=== PATIENT | female | born 1985 | race Caucasian/White ===

== ENCOUNTER 2018-11-12 08:37 | Inpatient (IN) | payer OTHER ==
[~2018-11-12] VITALS: Ht 177.8 cm; Wt 88.0 kg
[2018-11-12] MEDS ORDERED: PRENATAL FORMU1 EAC1 PO (10:49)
[2018-11-12] MEDS ORDERED: IRON325 MG PO (10:50)
[2018-11-12] MEDS ORDERED: ASPIR 8181 MG PO (10:50)
[2018-11-12] MEDS ORDERED: VALTREX1000 MG PO (10:51)
== END 2018-11-14 12:32 | disposition home or self-care (01) | DRG 807 ==
LOC: LDR 08:37 → OB/GYN 17:55
PROVIDERS: ADMIT Obstetrics & Gynecology
PROC: 10E0XZZ Delivery of Products of Conception, External Approach (ICD-10-PCS; principal; 2018-11-12)
PROC: 0HQ9XZZ Repair Perineum Skin, External Approach (ICD-10-PCS; 2018-11-12)
PROC: 3E033VJ Introduction of Other Hormone into Peripheral Vein, Percutaneous Approach (ICD-10-PCS; 2018-11-12)
PROC: 4A1HXCZ Monitoring of Products of Conception, Cardiac Rate, External Approach (ICD-10-PCS; 2018-11-12)
DX: O70.0 First degree perineal laceration during delivery (principal); Z37.0 Single live birth; Z3A.38 38 weeks gestation of pregnancy; Z22.330 Carrier of Group B streptococcus